=== PATIENT | male | born 2000 | race Caucasian/White ===

== ENCOUNTER 2020-08-01 17:28 | Inpatient (IN) | payer BC ==
[~2020-08-01] VITALS: Ht 182.9 cm; Wt 77.0 kg
[2020-08-01] MEDS ORDERED: SODIUM CHLORIDE FLUSH 10ML SYR IVF ONE (18:30)
[2020-08-01] MEDS ORDERED: FAMOTIDINE 20 MG/2 ML IVPush ONE (18:30)
[2020-08-01] MEDS ORDERED: ONDANSETRON 2MG/ML, 2ML IVPush ONE (18:30)
[2020-08-01] MEDS ORDERED: SODIUM CHLORIDE 0.9% 1,000ML IVBOLUS ONE (18:30)
[2020-08-01] MEDS ORDERED: ONDANSETRON 2MG/ML, 2ML ONE (18:51)
[2020-08-01] MEDS ORDERED: FAMOTIDINE 20 MG/2 ML ONE (18:51)
[2020-08-01 18:54] LABS: ALANINE AMINOTRANSFERASE 34 U/L (12-78); ALBUMIN 4.4 g/dL (3.4-5.0); ANION GAP 9 mmol/L (5-15); CALCIUM 9.3 mg/dL (8.5-10.1); CHLORIDE 107 mmol/L (98-107); CREATININE 1.18 mg/dL (0.7-1.3)
[2020-08-01 18:56] LABS: ALKALINE PHOSPHATASE 66 U/L (45-117); BILIRUBIN,TOTAL 0.5 mg/dL (0.2-1.0); TOTAL PROTEIN 7.6 g/dL (6.4-8.2)
[2020-08-01 19:01] LABS: BASOPHILS % (AUTO) 1 % (0-1); EOSINOPHILS % (AUTO) 0 % (1-7); LYMPHOCYTES % (AUTO) 11 % (22-44); MEAN CORPUSCULAR HEMOGLOBIN 31.1 pg (27.5-34.5); MEAN CORPUSCULAR HGB CONC 33.4 g/dL (33.2-36.2); MEAN PLATELET VOLUME 9.5 fL (7.4-10.4); MONOCYTES % (AUTO) 5 % (2-9); NEUTROPHILS % (AUTO) 84 % (42-75); PLATELET COUNT 289 x10^3/uL (130-400); RED BLOOD COUNT 5.34 x10^6/uL (4.38-5.82); RED CELL DISTRIBUTION WIDTH 13.3 % (9.4-14.8)
[2020-08-01 19:02] LABS: MD NO
--- NOTE | 2020-08-01 19:10 | NUR ---
First contact with patient: patient presents to ER c/o epigastric pain and N/V. Patient states he felt it this morning after drinking too much last night. Patient states his last bout of vomiting was about 1730. Has a hx of ulcers and states this feels similar. Patient is in NAD. Respirations even and unlabored. IV established. Medicated patient per jun.
[2020-08-01] MEDS ORDERED: PROMETHAZINE 25 MG/ML, 1ML IM PRN (20:00)
[2020-08-01] MEDS ORDERED: ACETAMINOPHEN 325 MG TABLET PO PRN (20:00)
[2020-08-01] MEDS ORDERED: ONDANSETRON ODT 4 MG PO PRN (20:00)
[2020-08-01 20:57] VITALS: BP 131/75
[2020-08-01] MEDS: LACTATED RINGERS 1,000 ML IV SCH (21:08)
[2020-08-01] MEDS: morphine SULFATE 10 MG/ML, 1ML IVPush PRN (21:39)
[2020-08-01] MEDS: FAMOTIDINE 20 MG/2 ML IVPush SCH (21:40)
[2020-08-01] MEDS: ONDANSETRON 2MG/ML, 2ML IVPush PRN (22:51)
[2020-08-02] MEDS: morphine SULFATE 10 MG/ML, 1ML IVPush PRN ×4 (00:55→19:32)
[2020-08-02 02:12] VITALS: BP 119/72
[2020-08-02] MEDS: LACTATED RINGERS 1,000 ML IV SCH ×3 (02:13→18:00)
[2020-08-02 05:53] LABS: BASOPHILS % (AUTO) 1 % (0-1); EOSINOPHILS % (AUTO) 1 % (1-7); LYMPHOCYTES % (AUTO) 24 % (22-44); MEAN CORPUSCULAR HEMOGLOBIN 32.1 pg (27.5-34.5); MEAN CORPUSCULAR HGB CONC 34.5 g/dL (33.2-36.2); MEAN PLATELET VOLUME 9.7 fL (7.4-10.4); MONOCYTES % (AUTO) 8 % (2-9); NEUTROPHILS % (AUTO) 67 % (42-75); PLATELET COUNT 242 x10^3/uL (130-400); RED BLOOD COUNT 4.62 x10^6/uL (4.38-5.82); RED CELL DISTRIBUTION WIDTH 13.6 % (9.4-14.8)
[2020-08-02 05:58] LABS: MD NO
[2020-08-02 07:12] LABS: ALBUMIN 3.5 g/dL (3.4-5.0); ANION GAP 4 mmol/L (5-15); CALCIUM 8.7 mg/dL (8.5-10.1); CHLORIDE 108 mmol/L (98-107); CREATININE 0.97 mg/dL (0.7-1.3)
[2020-08-02 07:16] VITALS: BP 119/65
[2020-08-02 07:17] LABS: ALANINE AMINOTRANSFERASE 22 U/L (12-78); ALKALINE PHOSPHATASE 55 U/L (45-117); TOTAL PROTEIN 6.2 g/dL (6.4-8.2)
[2020-08-02] MEDS: FAMOTIDINE 20 MG/2 ML IVPush SCH ×2 (09:32→21:02)
[2020-08-02] MEDS: ONDANSETRON 2MG/ML, 2ML IVPush PRN ×2 (09:32→19:32)
[2020-08-02 12:36] VITALS: BP 119/68
[2020-08-02 20:00] VITALS: BP 131/76
[2020-08-03] MEDS: LACTATED RINGERS 1,000 ML IV SCH (00:10)
[2020-08-03 00:54] VITALS: BP 121/73
[2020-08-03 05:31] LABS: BASOPHILS % (AUTO) 1 % (0-1); EOSINOPHILS % (AUTO) 2 % (1-7); LYMPHOCYTES % (AUTO) 29 % (22-44); MEAN CORPUSCULAR HGB CONC 34.2 g/dL (33.2-36.2); MEAN PLATELET VOLUME 9.5 fL (7.4-10.4); MONOCYTES % (AUTO) 9 % (2-9); NEUTROPHILS % (AUTO) 58 % (42-75); PLATELET COUNT 209 x10^3/uL (130-400); RED BLOOD COUNT 4.42 x10^6/uL (4.38-5.82); RED CELL DISTRIBUTION WIDTH 13.2 % (9.4-14.8)
[2020-08-03 05:34] LABS: MD NO
[2020-08-03 05:48] LABS: ALANINE AMINOTRANSFERASE 23 U/L (12-78); ALBUMIN 3.4 g/dL (3.4-5.0); ANION GAP 4 mmol/L (5-15); CALCIUM 8.9 mg/dL (8.5-10.1); CHLORIDE 105 mmol/L (98-107); CREATININE 1.06 mg/dL (0.7-1.3)
[2020-08-03 05:54] LABS: ALKALINE PHOSPHATASE 55 U/L (45-117); TOTAL PROTEIN 6.1 g/dL (6.4-8.2)
[2020-08-03 07:08] VITALS: BP 107/69
[2020-08-03] MEDS: FAMOTIDINE 20 MG/2 ML IVPush SCH (08:21)
[2020-08-03] MEDS ORDERED: OMEP-110 PO (10:26)
== END 2020-08-03 12:00 | disposition home or self-care (01) | DRG 439 ==
LOC: ED 20:22 → EDIP 21:16 → 3N 21:19 → DCLOUNGE 08-03 11:49
PROVIDERS: ATTEND Hospitalist
DX: K85.20 Alcohol induced acute pancreatitis without necrosis or infection (principal); Q79.60 Ehlers-Danlos syndrome, unspecified; Z72.89 Other problems related to lifestyle; Z87.11 Personal history of peptic ulcer disease; Z71.41 Alcohol abuse counseling and surveillance of alcoholic
CPT/HCPCS: 36415; 76700; 80053; 83690; 85025; 96374; G0378; J2405; J2270; J7030; J7120